=== PATIENT | female | born 1960 | race Caucasian/White ===

== ENCOUNTER 2017-12-16 07:06 | Day surgery (SDC) | payer BC ==
[2017-12-15 09:16] VITALS: BMI 36.2
[~2017-12-16 07:06] MED LIST: LACTATED RINGERS 1,000 ML IV SCH; LIDOCAINE 1% 20 ML VIAL (10MG/ML) FOR IV START INTRADERMA PRN
[2017-12-16 07:28] VITALS: TEMP 97.7
[2017-12-16] MEDS ORDERED: LIDOCAINE 1% 20 ML VIAL (10MG/ML) FOR IV START INTRADERMA ONE (07:33)
[2017-12-16] MEDS ORDERED: PROPOFOL 10 MG/ML 20 ML VIAL IV ONE (08:13)
[2017-12-16] MEDS ORDERED: LIDOCAINE 1% INJ 10MG/ML (20 ML MDV) ONE (08:13)
--- NOTE | 2017-12-16 08:13 | P.GSHP ---
History of Present Illness H&P Date: 12/16/17 Chief Complaint: Screening colonoscopy This a 57-year-old female referred from Dr. Hinton. Patient resents today for screening colonoscopy. 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) braulio filter, rebekah knee replacement, rebekah varicose vein sx, incisional and hiatal hernia repair Past Anesthesia/Blood Transfusion Reactions: No Reported Reaction Smoking Status: Never smoker - Past Family History Mother Family Medical History: Cancer, Deep Vein Thrombosis (DVT) Additional Family Medical History / Comment(s): breast Father Family Medical History: Cancer Additional Family Medical History / Comment(s): lung, prostate Medications and Allergies Home Medications Medication Instructions Recorded Confirmed Type Sertraline [Zoloft] 100 mg PO DAILY 07/23/15 12/16/17 History Aspirin [Adult Low Dose Aspirin EC] 81 mg PO DAILY 12/15/17 12/16/17 History Gabapentin 800 mg PO DAILY 12/15/17 12/16/17 History Leucovorin Calcium 5 mg PO FR 12/15/17 12/16/17 History Levothyroxine Sodium [Synthroid] 125 mcg PO DAILY 12/15/17 12/16/17 History Methotrexate 0.8 ml SQ FR 12/15/17 12/16/17 History traMADol HCL [Ultram] 50 - 100 mg PO Q8H PRN 12/15/17 12/16/17 History Allergies Allergy/AdvReac Type Severity Reaction Status Date / Time doxycycline calcium Allergy Unknown Verified 12/16/17 07:28 [From Vibramycin] doxycycline hyclate Allergy Unknown Verified 12/16/17 07:28 [From Vibramycin] doxycycline monohydrate Allergy Unknown Verified 12/16/17 07:28 [From Vibramycin] Surgical - Exam Vital Signs Temp Pulse Resp BP Pulse Ox 97.7 F 66 16 128/69 96 12/16/17 07:26 12/16/17 07:26 12/16/17 07:26 12/16/17 07:26 12/16/17 07:26 - General well developed, no distress - Eyes PERRL - ENT normal pinna - Neck no masses - Respiratory normal expansion - Cardiovascular Rhythm: regular - Abdomen Abdomen: soft, non tender Assessment and Plan Assessment: We'll perform screening colonoscopy.
--- NOTE | 2017-12-16 08:32 | P.OP ---
Date of Procedure: 12/16/17 Preoperative Diagnosis: Screening colonoscopy Postoperative Diagnosis: Diverticulosis Procedure(s) Performed: Colonoscopy Anesthesia: MAC Surgeon: Leandro Flores Pathology: none sent Condition: stable Disposition: PACU Description of Procedure: The patient's placed on the endoscopy table in the lateral position. She received IV sedation. Digital rectal exam was performed which revealed no abnormalities. The flexible colonoscope was then placed patient anus passed throughout the entire colon. The ileocecal valve was visualized. The cecum, ascending and transverse colon appeared normal. Descending and sigmoid colon there was extensive diverticular changes. There was no evidence of diverticulitis. The scope was then brought back the rectum this appeared normal. Scope was withdrawn for patient.
[2017-12-16 09:33] VITALS: PULSE 66; RESP 18
== END 2017-12-16 09:27 | disposition home or self-care (01) ==
LOC: ORWHC2ENDO 07:06
PROVIDERS: ATTEND Surgery
DX: Z12.11 Encounter for screening for malignant neoplasm of colon (principal); K57.30 Diverticulosis of large intestine without perforation or abscess without bleeding; E07.9 Disorder of thyroid, unspecified; M06.9 Rheumatoid arthritis, unspecified; M79.7 Fibromyalgia; Z79.82 Long term (current) use of aspirin; Z86.711 Personal history of pulmonary embolism; Z86.718 Personal history of other venous thrombosis and embolism; Z96.653 Presence of artificial knee joint, bilateral; Z88.1 Allergy status to other antibiotic agents; Z79.890 Hormone replacement therapy; Z79.899 Other long term (current) drug therapy
CPT/HCPCS: 45378; J2001; J2704

== ENCOUNTER → 2022-02-03 | Outpatient (CLI) | payer OTHER, BC ==
--- NOTE | 2022-02-03 10:41 | XR ---
EXAMINATION TYPE: XR KUB DATE OF EXAM: 02/03/2022 Comparison: 11/13/2011 Clinical History: 61-year-old female PRELIM FOR SMALL BOWEL SERIES/STOOL BURDEN Findings: There is large stool burden. Nonobstructive bowel gas pattern. Air and stool extends distally to the rectum. Trapezoid IVC filter is noted. Cholecystectomy clips. Additional surgical material below the GE junction. Supine imaging limited for assessment of free air. Impression: Large stool burden. Correlate for constipation. This may become problematic for the patient after ing estion of barium contrast for small bowel series. The patient elects to evacuate the excess stool paul or to performance of the upper GI/small bowel follow-through.
== END | disposition home or self-care (01) ==
LOC: RADFLMAIN 09:12
PROVIDERS: ATTEND Family Medicine
DX: R10.9 Unspecified abdominal pain (principal); Z90.3 Acquired absence of stomach [part of]; Z90.49 Acquired absence of other specified parts of digestive tract
CPT/HCPCS: 74018

== ENCOUNTER → 2022-07-27 | Outpatient (CLI) | payer OTHER ==
--- NOTE | 2022-07-27 14:37 | MM ---
Reason for Exam: Clinical finding. Last mammogram was performed 1 year(s) and 5 month(s) ago. Patient History: Menarche at age 10. First Full-Term at age 25. Postmenopausal. Paternal aunt had breast cancer under age 50. Paternal grandmother had breast cancer at or over age 50. Mother had breast cancer at or over age 50. Sister had breast cancer, age 52. Father had breast cancer, age 60. Risk Values: Meme 5 year model risk: 5.6%. NCI Lifetime model risk: 24.5%. Prior Study Comparison: 04/24/2018 Bilateral MG 3D screening mammo w/cad, Unknown. 02/10/2021 Bilateral MG 3D screening mammo w/cad, Unknown. Tissue Density: There are scattered fibroglandular densities. Findings: Analyzed By CAD. No new suspicious masses, calcifications or distortions. Overall Assessment: Incomplete: need additional imaging evaluation, BI-RAD 0 Management: Diagnostic Breast Ultrasound of the right breast. Ultrasound for tender breast. Results were given to the patient verbally at the time of exam. Patient should continue monthly self-breast exams. A clinical breast exam by your physician is recommended on an annual basis. This exam should not preclude additional follow-up of suspicious palpable abnormalities. Note on Meme scores and lifetime risk: 1. A Meme score greater than 3% is considered moderate risk. If this is the case, consider specialist referral to assess eligibility for a risk reducing agent. 2. If overall lifetime risk for the development of breast cancer is 20% or higher, the patient may qualify for future screening with alternating mammogram and breast MRI. Electronically signed and approved by: Jayme Caldwell DO
--- NOTE | 2022-07-27 15:21 | USB ---
Reason for Exam: Clinical finding. Patient History: Menarche at age 10. First Full-Term at age 25. Postmenopausal. Paternal aunt had breast cancer under age 50. Paternal grandmother had breast cancer at or over age 50. Mother had breast cancer at or over age 50. Sister had breast cancer, age 52. Father had breast cancer, age 60. Risk Values: Meme 5 year model risk: 5.6%. NCI Lifetime model risk: 24.5%. Technique: Method: Whole Breast Handheld. Prior Study Comparison: 04/24/2018 Bilateral MG 3D screening mammo w/cad, Unknown. 02/10/2021 Bilateral MG 3D screening mammo w/cad, Unknown. Findings: The whole breast of the right breast, the axilla of the right breast and the retroareolar of the right breast were scanned. A complete US of all four quadrants of the breast, axilla, and retro-areolar region were reviewed. There is a tiny benign 3 mm cyst at 10:00, 5 cm from the nipple. No solid or cystic lesion or axillary lymphadenopathy. Overall Assessment: Benign, BI-RAD 2 Management: Screening Mammogram of both breasts in 1 year. See note on patient increased 5 year Meme score as well as lifetime risk score below. Results were given to the patient verbally at the time of exam. Note on Meme scores and lifetime risk: 1. A Meme score greater than 3% is considered moderate risk. If this is the case, consider specialist referral to assess eligibility for a risk reducing agent. 2. Given overall lifetime risk for the development of breast cancer greater than 20%, the patient may qualify for future screening with alternating mammogram and breast MRI. Patient should continue monthly self-breast exams. A clinical breast exam by your physician is recommended on an annual basis. This exam should not preclude additional follow-up of suspicious palpable abnormalities. Electronically signed and approved by: Barbara Poole M.D. Radiologist
== END | disposition home or self-care (01) ==
LOC: RADMAMWWP 14:05
PROVIDERS: ATTEND Family Medicine
DX: N60.01 Solitary cyst of right breast (principal); Z78.0 Asymptomatic menopausal state; Z80.3 Family history of malignant neoplasm of breast
CPT/HCPCS: 77062; 77066

== ENCOUNTER → 2023-09-15 | Outpatient (CLI) | payer OTHER ==
--- NOTE | 2023-09-23 12:23 | MM ---
Reason for Exam: Screening (asymptomatic). Last mammogram was performed 1 year(s) and 2 month(s) ago. Patient History: Menarche at age 10. First Full-Term at age 25. Postmenopausal. Paternal aunt had breast cancer, age 50. Paternal grandmother had breast cancer, age 50. Mother had breast cancer, age 50. Sister had breast cancer, age 52. Father had breast cancer, age 60. Risk Values: Meme 5 year model risk: 5.8%. NCI Lifetime model risk: 23.9%. Prior Study Comparison: 04/24/2018 Bilateral MG 3D screening mammo w/cad, Unknown. 02/10/2021 Bilateral MG 3D screening mammo w/cad, Unknown. 07/27/2022 Bilateral MG 3D diag mammo w/cad [facility], [facility]. Tissue Density: The breasts are almost entirely fatty. Findings: Analyzed By CAD. Right breast: There is no suspicious group of microcalcifications or new suspicious mass. Benign-appearing calcifications right breast. Left breast: There is no suspicious group of microcalcifications or new suspicious mass. Benign-appearing calcifications left breast. Overall Assessment: Benign, BI-RAD 2 Management: Screening Mammogram of both breasts in [address] [facility] will attempt to contact patient to return for supplemental views and ultrasound if indicated. Patient should continue monthly self-breast exams. A clinical breast exam by your physician is recommended on an annual basis. This exam should not preclude additional follow-up of suspicious palpable abnormalities. Note on Meme scores and lifetime risk: 1. A Meme score greater than 3% is considered moderate risk. If this is the case, consider specialist referral to assess eligibility for a risk reducing agent. 2. If overall lifetime risk for the development of breast cancer is 20% or higher, the patient may qualify for future screening with alternating mammogram and breast MRI. Electronically signed and approved by: Jayme Caldwell DO
== END | disposition home or self-care (01) ==
LOC: RADMAMWWP 15:25
PROVIDERS: ATTEND Family Medicine
DX: Z12.31 Encounter for screening mammogram for malignant neoplasm of breast (principal); R92.313 Mammographic fatty tissue density, bilateral breasts; Z78.0 Asymptomatic menopausal state; Z80.3 Family history of malignant neoplasm of breast
CPT/HCPCS: 77063; 77067